=== PATIENT | female | born 1950 | race Caucasian/White ===

== ENCOUNTER 2023-07-11 09:00 | Day surgery (SDC) | payer MEDICARE, BC ==
[~2023-07-11 09:00] MED LIST: Cefuroxime 10 MG/ML SYRINGE EYERT SCH; Lidocaine 1% PF 2 ML SDV INJECT SCH; Pilocarpine 4% Ophth Soln 15 ML Bot EYERT SCH; Tetracaine HCl/PF 0.5% 4 ML Bottle EYEBOTH SCH
[2023-07-11] MEDS: Polymyxin B/Trimethoprim 10 ML Bottle EYERT SCH ×3 (09:30→11:18)
[2023-07-11] MEDS: Brimonidine 0.2% Ophth Soln 5 ML Bottle EYERT SCH ×3 (09:35→11:18)
[2023-07-11] MEDS: Phenylephrine 2.5% Ophth Soln 2 ML Bot EYERT SCH ×5 (09:40→10:56)
[2023-07-11] MEDS: Tropicamide 1% Ophth Soln 3 ML Bottle EYERT SCH ×4 (09:45→10:25)
[2023-07-11] MEDS: Proparacaine 0.5% Ophth Soln 15 ML Bottle EYEBOTH SCH ×4 (10:41→11:03)
== END 2023-07-11 11:26 | disposition home or self-care (01) ==
LOC: JD.SDS 09:00
PROVIDERS: ATTEND Ophthalmology
DX: H25.813 Combined forms of age-related cataract, bilateral (principal); I10 Essential (primary) hypertension; Z79.899 Other long term (current) drug therapy; Z98.890 Other specified postprocedural states
CPT/HCPCS: 66984; A9270; J0697; 00142; 99100; J3490

== ENCOUNTER → 2023-09-05 | Day surgery (SDC) | payer MEDICARE, BC ==
[~2023-09-05] MED LIST changes: +Brimonidine 0.2% Ophth Soln 5 ML Bottle EYELF SCH; +Cefuroxime 10 MG/ML SYRINGE EYELF SCH; -Cefuroxime 10 MG/ML SYRINGE EYERT SCH; +Phenylephrine 2.5% Ophth Soln 2 ML Bot EYELF SCH; +Pilocarpine 4% Ophth Soln 15 ML Bot EYELF SCH; -Pilocarpine 4% Ophth Soln 15 ML Bot EYERT SCH; +Polymyxin B/Trimethoprim 10 ML Bottle EYELF SCH; +Tropicamide 1% Ophth Soln 15 ML Bottle EYELF SCH
[2023-09-05] MEDS: Polymyxin B/Trimethoprim 10 ML Bottle EYELF SCH ×3 (07:55→09:53)
[2023-09-05] MEDS: Brimonidine 0.2% Ophth Soln 5 ML Bottle EYELF SCH ×3 (08:00→09:53)
[2023-09-05] MEDS: Phenylephrine 2.5% Ophth Soln 2 ML Bot EYELF SCH ×6 (08:05→09:36)
[2023-09-05] MEDS: Tropicamide 1% Ophth Soln 3 ML Bottle EYELF SCH ×4 (08:10→08:54)
[2023-09-05] MEDS: Tetracaine HCl/PF 0.5% 4 ML Bottle EYEBOTH SCH ×4 (08:59→09:43)
== END ==
LOC: JD.SDS 07:45
PROVIDERS: ATTEND Ophthalmology
DX: H25.812 Combined forms of age-related cataract, left eye (principal); I10 Essential (primary) hypertension; Z96.1 Presence of intraocular lens; Z79.890 Hormone replacement therapy; Z79.899 Other long term (current) drug therapy; Z88.0 Allergy status to penicillin
CPT/HCPCS: A9270-GY; J3490